=== PATIENT | female | born 1960 ===

== ENCOUNTER 2020-07-07 07:15 | Inpatient (IN) | payer OTHER ==
[~2020-07-07] VITALS: Ht 157.5 cm; Wt 67.6 kg
[2020-07-07] MEDS ORDERED: FORTAMET500 MG PO (08:57)
[2020-07-07] MEDS ORDERED: GLIPIZIDE ER5 MG PO (08:57)
[2020-07-07] MEDS ORDERED: METOPROLOL SUCC50 MG PO (08:58)
[2020-07-07] MEDS ORDERED: COZAAR50 MG PO (08:58)
[2020-07-07] MEDS ORDERED: LANTUS (08:59)
[2020-07-14] MEDS ORDERED: METOPROLOL TART50 MG (08:16)
[2020-07-14] MEDS ORDERED: FENOFIBRATE160 MG (08:16)
[2020-07-14] MEDS ORDERED: SYNTHROID50 MCG (08:16)
[2020-07-14] MEDS ORDERED: FAMOTIDINE20 MG (08:16)
[2020-07-14] MEDS ORDERED: SEMGLEE100 UNIT/1 (08:17)
[2020-07-14] MEDS ORDERED: COLACE100 MG PO (09:34)
[2020-07-14] MEDS ORDERED: CLONAZEPAM1 MG PO (09:34)
[2020-07-14] MEDS ORDERED: PERCOCET 5-3251 EACH PO (09:34)
== END 2020-07-15 13:23 | disposition home or self-care (01) | DRG 473 ==
LOC: O/R 07-14 05:00 → SURH 07-14 05:00
PROVIDERS: ADMIT Orthopaedic Surgery Orthopaedic Surgery of the Spine; ATTEND Orthopaedic Surgery Orthopaedic Surgery of the Spine
PROC: 0RB30ZZ Excision of Cervical Vertebral Disc, Open Approach (ICD-10-PCS; 2020-07-14)
PROC: 07DS3ZZ Extraction of Vertebral Bone Marrow, Percutaneous Approach (ICD-10-PCS; 2020-07-14)
PROC: 0RG10A0 Fusion of Cervical Vertebral Joint with Interbody Fusion Device, Anterior Approach, Anterior Column, Open Approach (ICD-10-PCS; principal; 2020-07-14 10:30)
DX: M50.022 Cervical disc disorder at C5-C6 level with myelopathy (principal); M48.02 Spinal stenosis, cervical region; E11.9 Type 2 diabetes mellitus without complications; Z79.84 Long term (current) use of oral hypoglycemic drugs